=== PATIENT | male | born 1965 | race Asian ===

== ENCOUNTER 2017-10-24 10:08 | Emergency (ER) | payer OTHER ==
[2017-10-24 10:15] VITALS: TEMP 98; BMI 32.3
--- NOTE | 2017-10-24 11:16 | PDOC ---
History of Present Illness - General History Source: Patient Exam Limitations: No Limitations <Francesca Euceda - Last Filed: 10/24/17 11:48> <MignonKiera William - Last Filed: 10/24/17 14:35> - General Chief Complaint: Chest Pain Stated Complaint: CHEST PAIN Time Seen by Provider: 10/24/17 10:22 - History of Present Illness Initial Comments: 10/24/17 11:18 The patient is a 52 year old male, with a significant past medical history of hypertension, diabetes, and GERD, who presents to the emergency department with 1 days of chest pain, beginning last night 7pm. The patient reports acute onset of dull, nonradiating, left sided chest pain yesterday afternoon while shopping at the grocery store and after driving. Upon returning home, patient reports taking Metoprolol and Tylenol for his symptoms with minimal relief. However, upon waking up this morning at around 08:00, patient reports his pain persisted and radiated from his left chest to the epigastric region. He denies any associated shortness of breath, diaphoresis, palpitations, or lower extremity edema. Patient reports he has had episodes of chest pain in the past, which typically resolved on their own. He denies any recent stressors or history of anxiety. He denies any abdominal pain, nausea, or vomiting. He denies any recent fever, chills, cough, headache, or dizziness. He denies any recent travel or sick contacts. Patients last stress test and Echo were in July 2016 , both of which were negative. Allergies: NKDA Past Surgical History: None reported Social History: Non smoker. No ETOH or recreational drug use. Family History: Brother: Valvular heart disease. Mother: CAD with stents (OkFrancesca) Past History <Francesca Euceda - Last Filed: 10/24/17 11:48> - Past Medical History COPD: No Diabetes: Yes HTN: Yes - Suicide/Smoking/Psychosocial Hx Smoking History: Never smoked Hx Alcohol Use: No Substance Use Type: None <Jozef Crowmaria luisa Thomas - Last Filed: 10/24/17 14:35> - Past Medical History Allergies/Adverse Reactions: Allergies Allergy/AdvReac Type Severity Reaction Status Date / Time No Known Allergies Allergy Verified 10/24/17 10:15 Home Medications: Ambulatory Orders Aspirin [Aspirin EC] 81 mg PO DAILY 10/24/17 Losartan Potassium 100 mg PO DAILY 10/24/17 Metoprolol Succinate 50 mg PO DAILY 10/24/17 Ranitidine [Zantac -] 150 mg PO DAILY 10/24/17 Simvastatin 10 mg PO HS 10/24/17 Sitagliptin Phos/Metformin HCl [Janumet 50-500 mg Tablet] 1 tab PO DAILY Review of Systems - Review of Systems Able to Perform ROS?: Yes <Francesca Euceda - Last Filed: 10/24/17 11:48> <Kiera Crow - Last Filed: 10/24/17 14:35> - Review of Systems Comments:: 10/24/17 11:18 GENERAL/CONSTITUTIONAL: No fever or chills. No weakness. no sweats. HEAD, EYES, EARS, NOSE AND THROAT: No change in vision or hearing. No ear pain or discharge. No sore throat or mouth pain. No difficulty swallowing.. No congestion. CARDIOVASCULAR: +Chest pain. No palpitations, syncope or edema. RESPIRATORY: No SOB, cough, wheezing, or hemoptysis. GASTROINTESTINAL +Epigastric pain. No nausea/vomiting. No diarrhea or constipation. No bloody stools. GENITOURINARY: No hematuria, dysuria, frequency, urgency or other changes. MUSCULOSKELETAL: No joint or muscle swelling or pain. No neck or back pain. SKIN: No rash or changes in skin color or lesions. NEUROLOGIC: No headache, vertigo, loss of consciousness, or change in strength/ sensation. No gait instability. ENDOCRINE: No increased thirst. No abnormal weight or appetite change or intolerance to heat/cold. HEMATOLOGIC/LYMPHATIC: No anemia, easy bruising/bleeding, or history of blood clots. ALLERGIC/IMMUNOLOGIC: No hives or skin allergy. All other systems reviewed and negative, or as documented in HP (Francesca Euceda) *Physical Exam <Francesca Euceda - Last Filed: 10/24/17 11:48> <Kiera Crow - Last Filed: 10/24/17 14:35> - Vital Signs Last Vital Signs Temp Pulse Resp BP Pulse Ox 98 F 87 18 155/96 99 10/24/17 10:11 10/24/17 10:11 10/24/17 10:11 10/24/17 10:11 10/24/17 10:11 - Physical Exam Comments: 10/24/17 11:19 General: Well appearing, awake and alert, NAD. HEENT: NCAT, PERRL, EOMI, clear conjunctiva, anicteric, moist mucus membranes, clear oropharynx, no oral lesions.. Airway patent, normal phonation Neck: neck supple, FROM, no JVD, LAD or masses Lungs: CTAB, normal and even respirations, no respiratory distress Chest: No reproducible chest wall tenderness. Heart: RRR, no murmurs, 2+ peripheral pulses throughout, no peripheral edema Abdomen: soft, NTND, no peritoneal signs. No CVAT Back: nontender, normal inspection and ROM MSK: no edema, AVILA x4, ROM intact. No clubbing or cyanosis. normal bulk and tone. Neuro: alert, oriented appropriately; no focal neurologic deficits. Skin: warm and well perfused, cap refill <2 sec, normal color; no rash (Francesca Euceda) Heart Score/ECG Review - History History: Slightly suspicious - Electrocardiogram EKG: Normal - Age Age: 45-65 - Risk Factors Risk Factors Heart Score: Yes Hx Hypertension, Yes Hx Diabetes Based on the list above the patient has:: 1-2 risk factors - Troponin Troponin: </= normal limit - Score Heart Score - Total: 2 <Kiera Crow - Last Filed: 10/24/17 14:35> ED Treatment Course - LABORATORY CBC & Chemistry Diagram: 10/24/17 10:55 10/24/17 10:55 <Francesca Euceda - Last Filed: 10/24/17 11:48> - LABORATORY CBC & Chemistry Diagram: 10/24/17 10:55 10/24/17 10:55 <Kiera Crow - Last Filed: 10/24/17 14:35> - ADDITIONAL ORDERS Additional order review: Laboratory Results 10/24/17 10:55 Sodium 139 Potassium 4.4 D Chloride 103 Carbon Dioxide 28 Anion Gap 8 BUN 9 Creatinine 1.0 Creat Clearance w eGFR > 60 Random Glucose 133 H D Calcium 9.4 Magnesium 1.9 Total Bilirubin 0.4 AST 28 D ALT 50 D Alkaline Phosphatase 52 Troponin I < 0.02 Total Protein 8.2 Albumin 4.2 10/24/17 10:55 RBC 4.54 MCV 86.2 MCHC 33.9 RDW 13.6 MPV 9.3 Neutrophils % 51.8 Lymphocytes % 34.1 D Monocytes % 8.8 Eosinophils % 4.6 H Basophils % 0.7 D - RADIOLOGY Radiology Studies Ordered: Category Date Time Status CHEST PA & LAT [RAD] Stat Radiology 10/24/17 10:23 Completed - Medications Given in the ED: ED Medications Discontinued Medications Generic Name Dose Route Start Last Admin Trade Name Christiano PRN Reason Stop Dose Admin Al Hydroxide/Mg Hydroxide 30 ml 10/24/17 11:18 10/24/17 11:20 Mylanta Oral Suspension - PO 10/24/17 11:19 30 ml ONCE ONE Administration Aspirin 324 mg 10/24/17 11:17 10/24/17 11:15 Asa - PO 10/24/17 11:18 324 mg ONCE ONE Administration Famotidine/Sodium Chloride 20 mg in 50 mls @ 100 mls/hr 10/24/17 11:18 11:20 Pepcid 20 Mg Premixed Ivpb - IVPB 10/24/17 11:47 100 mls/hr ONCE ONE Administration Medical Decision Making <Francesca Euceda - Last Filed: 10/24/17 11:48> <Kiera Crow - Last Filed: 10/24/17 14:35> - Medical Decision Making 10/24/17 11:10 It[place], 52M with history of DM2, HTN, GERD presenting with left chest pain x 1 day beginning yesterday evening. Nonexertional, nonradiating, no associated sx or recent illness. This morning, chest pain moved more to epigastrium, 3/10, minimal and no exacerbating factors. No trauma or strenuous activities. No family history of sudden deaths; younger brother valvular heart disease and mother with CAD s/p PCI. Vital signs reviewed, wnl. normotensive, normal HR, no respiratory distress Plan: CBC, CMP, Mg, ECG, trops/card panel, CXR Interventions: GI cocktail, ASA laboratory results and imaging reviewed, basic labs and lytes wnl, notable for neg trop x1, one sufficient given symptoms from last night and effectively ruling out ACS with MACe risk<1.7% by Heart scoring. CXR normal. EKG normal sinus rhythm at 81, no interval abnormalities, narrow QRS, ST and T wave segments and morphology normal, nonspecific flattening in III. Chest pain Heart score 2 HEART score 2 which denotes Low risk and probability for ACS, less than 1.7% risk for MACE at 30 days. DDx includes ACS, angina, chest pain NOS, costochondritis, GERD, pleurisy, anxiety, esophageal spasm. Considered but clinically doubt based on HPI and PE: Low suspicion for pulmonary embolism or dissection. Last stress test in July 2016 with negative stress echo, adequate heart rate criteria, no ischemic changes or symptoms, Dr. Crespo referring climate change analyst.. - reassuringly, no radiation or exertional component of pain. symptoms improving , known h/o GERD and feels migration of pain to epigastrium, no peritoneal signs or significant abdominal tenderness on exam. labs including LFTs normal otherwise. given GI cocktail with resolution. no pain currently. spoke with Dr. Irby, will see as outpatient on Thursday, discussed impression and plan with patient, who is in agreement. Pt to be discharged in stable condition. Patient made aware of impression and plan, return precautions discussed (including but not limited to worsening pain or symptoms), fevers, or signs of infection, chest pain, respiratory distress, inability to tolerate oral intake, dehydration, syncope, or neurologic changes). Follow up with PMD and/or specialist as recommended (climate change analyst in [place] on 11/04), follow up information provided, take medications as instructed for duration of time, c/ w prilosec home regimen for GERD. continue with supportive care, avoid triggers and precipitants. 10/24/17 14:29 10/24/17 14:34 (Kiera Crow) *DC/Admit/Observation/Transfer <Francesca Euceda - Last Filed: 10/24/17 11:48> - Discharge Dispostion Decision to Admit order: No <Kiera Crow - Last Filed: 10/24/17 14:35> Diagnosis at time of Disposition: Chest pain Qualifiers: Chest pain type: unspecified Qualified Code(s): R07.9 - Chest pain, unspecified - Discharge Dispostion Disposition: HOME Condition at time of disposition: Improved - Referrals Referrals: Jordan Irby MD [Primary Care Provider] - - Patient Instructions Printed Discharge Instructions: DI for Atypical Chest Pain, DI for Chest Pain Additional Instructions: follow up with your primary doctor Dr. Irby on Thursday10/26/17. also your climate change analyst as scheduled on 11/04. Your laboratory / imaging results were negative for abnormalities or injuries Follow up with your physician and consultants as instructed above, take your medications as instructed including aspirin and your blood pressure medications. Return if worsening symptoms including fevers, headache, vomiting, visual or hearing disturbances, abdominal pain, chest pain, shortness of breath, syncope or worsening concerning symptoms. - Post Discharge Activity - Attestations Scribe Attestion: 10/24/17 11:20 Documentation prepared by Francesca Euceda, acting as medical coding instructor for Kiera Crow MD. (Francesca Euceda)
[2017-10-24] MEDS ORDERED: ASPIRIN 81 MG CHEWABLE TABLETS PO ONE (11:17)
[2017-10-24] MEDS ORDERED: FAMOTIDINE 20 MG/50 ML IVPB 20 MG/50 ML MG IVPB ONE (11:18)
[2017-10-24] MEDS ORDERED: MAG HYDROX/AL HYDROX/SIMETH 30 ML UNIT-DOSE CUP PO ONE (11:18)
[2017-10-24 11:44] LABS: ALBUMIN 4.2 g/dl (3.4-5.0); ANION GAP 8 (8-16); BLOOD UREA NITROGEN 9 mg/dL (7-18); CALCIUM 9.4 mg/dL (8.5-10.1); CHLORIDE 103 mmol/L (98-107); CO2 28 mmol/L (21-32); GLUCOSE,RANDOM 133 mg/dL (74-106); MAGNESIUM 1.9 mg/dL (1.8-2.4); POTASSIUM 4.4 mmol/L (3.5-5.1); SGOT/AST 28 U/L (15-37); SGPT/ALT 50 U/L (12-78); SODIUM 139 mmol/L (136-145)
[2017-10-24 11:49] LABS: ALK PHOS 52 U/L (45-117); BILIRUBIN,TOTAL 0.4 mg/dL (0.2-1.0); TOT PROT 8.2 g/dl (6.4-8.2)
[2017-10-24 12:14] LABS: BASO % 0.7 % (0-2.0); EOS % 4.6 % (0-4.5); HEMATOCRIT 39.1 % (35.4-49); HEMOGLOBIN 13.3 GM/dL (11.7-16.9); LYMPH % 34.1 % (8-40); MCH 29.2 pg (25.7-33.7); MCHC 33.9 g/dl (32.0-35.9); MEAN CELL VOLUME 86.2 fl (80-96); MEAN PLT VOLUME 9.3 fl (7.5-11.1); MONO % 8.8 % (3.8-10.2); NEUT % 51.8 % (42.8-82.8); PLATELET COUNT 220 K/MM3 (134-434); RBC 4.54 M/mm3 (4.00-5.60); RDW 13.6 % (11.9-15.9); WHITE BLOOD COUNT 6.8 K/mm3 (4.0-10.0)
--- NOTE | 2017-10-24 14:41 | EKG ---
Test Reason : Blood Pressure : / mmHG Vent. Rate : 081 BPM Atrial Rate : 081 BPM P-R Int : 128 ms QRS Dur : 084 ms QT Int : 380 ms P-R-T Axes : 050 024 040 degrees QTc Int : 441 ms POOR DATA QUALITY, INTERPRETATION MAY BE ADVERSELY AFFECTED NORMAL SINUS RHYTHM NORMAL ECG NO PREVIOUS ECGS AVAILABLE Confirmed by Roger Woods ([id number]) on 10/24/2017 2:40:41 PM Referred By: Confirmed By:Roger Woods
[2017-10-24 15:22] VITALS: BP 140/91; PULSE 67
== END 2017-10-24 14:25 | disposition home or self-care (01) ==
LOC: JER 10:08
PROC: 3E033GC Introduction of Other Therapeutic Substance into Peripheral Vein, Percutaneous Approach (ICD-10-PCS; principal; 2017-10-24)
DX: R07.9 Chest pain, unspecified (principal); I10 Essential (primary) hypertension; E11.9 Type 2 diabetes mellitus without complications; Z79.84 Long term (current) use of oral hypoglycemic drugs; K21.9 Gastro-esophageal reflux disease without esophagitis
CPT/HCPCS: 36415; 71046-TC-FY; 80053; 83735; 84484; 85025; 93005; 93010; 96365; 99283-25

== ENCOUNTER 2020-08-04 11:08 | Emergency (ER) | payer OTHER ==
[2020-08-04 11:17] VITALS: TEMP 98.1; BMI 31.9
[2020-08-04 12:12] LABS: BASO % 0.6 % (0-2.0); EOS % 0.6 % (0-4.5); HEMOGLOBIN 13.1 GM/dL (11.7-16.9); LYMPH % 18.1 % (8-40); MCH 29.9 pg (25.7-33.7); MCHC 34.5 g/dl (32.0-35.9); MEAN CELL VOLUME 86.6 fl (80-96); MEAN PLT VOLUME 8.8 fl (7.5-11.1); MONO % 5.6 % (3.8-10.2); NEUT % 75.1 % (42.8-82.8); PLATELET COUNT 207 K/MM3 (134-434); RBC 4.39 M/mm3 (4.00-5.60); RDW 13.3 % (11.9-15.9); WHITE BLOOD COUNT 7.4 K/mm3 (4.0-10.0)
[2020-08-04 12:39] LABS: CHLORIDE 98 mmol/L (98-107); SODIUM 134 mmol/L (136-145)
[2020-08-04 12:40] LABS: CALCIUM 9.2 mg/dL (8.5-10.1)
[2020-08-04 12:41] LABS: ALBUMIN 4.2 g/dl (3.4-5.0); ANION GAP 8 MMOL/L (8-16); BLOOD UREA NITROGEN 14.9 mg/dL (7-18); CO2 29 mmol/L (21-32); GLUCOSE,RANDOM 224 mg/dL (74-106)
[2020-08-04 12:44] LABS: CREATININE 1.1 mg/dL (0.55-1.3); SGOT/AST 25 U/L (15-37); SGPT/ALT 50 U/L (13-61)
[2020-08-04 12:46] LABS: BILIRUBIN,TOTAL 0.6 mg/dL (0.2-1); TOT PROT 8.2 g/dl (6.4-8.2)
[2020-08-04 12:47] LABS: ALK PHOS 55 U/L (45-117)
[2020-08-04 12:52] LABS: PH,URINE 5.5 (5.0-8.0); URINE APPEARANCE CLEAR; URINE BILIRUBIN NEGATIVE (NEGATIVE); URINE COLOR DK YELLOW; URINE GLUCOSE (UA) 3+ (NEGATIVE); URINE KETONE TRACE (NEGATIVE); URINE LEUK ESTERASE NEGATIVE (NEGATIVE); URINE NITRITE NEGATIVE (NEGATIVE); URINE PROTEIN TRACE (NEGATIVE); URINE UROBILINOGEN 0.2 mg/dL (0.2-1.0)
[2020-08-04] MEDS ORDERED: SODIUM CHLORIDE 0.9% 1000 ML INFUS.BAG IV ONE (13:32)
[2020-08-04 14:32] LABS: MAGNESIUM 1.8 mg/dL (1.8-2.4)
[2020-08-04 14:35] LABS: CHOLESTEROL 203 mg/dL (50-200); PHOSPHOROUS 3.3 mg/dL (2.5-4.9); TRIGLYCERIDES 168 mg/dL (0-150)
[2020-08-04 14:36] LABS: LDL CHOLESTEROL (ONLY SJRH) 142 mg/dL (5-100)
[2020-08-04 14:38] LABS: HDL CHOLESTEROL 36 mg/dL (40-60)
[2020-08-04 15:28] VITALS: BP 114/79; PULSE 100
== END 2020-08-04 17:05 | disposition home or self-care (01) ==
LOC: JER 11:08
DX: I95.1 Orthostatic hypotension (principal)
CPT/HCPCS: 36415; 71046-TC-FY; 80053; 80061; 81003; 82550; 83721; 83735; 84100; 84484; 85025; 93005; 93010; 99284-25